=== PATIENT | male | born 1965 ===

== ENCOUNTER → 2020-03-31 07:46 | Outpatient (CLI) | payer OTHER, SELFPAY ==
--- NOTE | 2020-03-31 | DI.MRI.S_ITS ---
PROCEDURE: MR KNEE RT WO CON INDICATIONS: Other tear of lateral meniscus, current injury TECHNIQUE: Noncontrast sagittal PD fast spin echo and T2 fast spin echo with fat saturation, sagittal 3-D FLASH with fat saturation; coronal T1 spin echo and PD fast spin echo with fat saturation, and axial PD fast spin echo with fat saturation through the knee. COMPARISON: Merged With [facility], MR, KNEE WITHOUT CONTRAST, 11/18/2016, 17:49. FINDINGS: Image quality: Excellent. Menisci: Medial meniscal tear involving the posterior root which is not well visualized. There is also abnormal signal seen within the body of the medial meniscus extending to the periphery. There is slight partial extrusion Lateral meniscus intact although there is myxoid degeneration. Cruciate ligaments: Anterior cruciate ligament appears intact. Posterior cruciate ligament appears intact. Medial structures: The medial collateral ligament appears intact. Mild thickening of the distal insertion of the semimembranosus tendon. There is also mild T2 hyperintensity surrounding the distal pes anserinus tendons raising possibility of low-grade tendinopathy. Lateral structures: The lateral collateral ligament intact. Biceps femoris tendon appears intact. Popliteus tendon grossly unremarkable. Iliotibial band appears intact. Anterior structures: Quadriceps tendon intact. Medial and lateral patellofemoral ligaments intact. There is mild patellar tendinopathy. Prepatellar and superficial infrapatellar subcutaneous edema/fluid. Bones and cartilage: No focal marrow contusion or discrete low signal fracture line. Within the medial compartment, diffuse partial thickness loss of the femoral and tibial articular cartilage. Within the lateral compartment, intrasubstance signal changes involving the tibial cartilage. There is mild diffuse partial-thickness loss of the femoral cartilage. Within the patellofemoral compartment, diffuse surface fraying of the patellar cartilage. Joint space: Small joint effusion. Large Herman's cyst measuring approximately 6-7 cm in the cephalocaudal dimension. No specific evidence of intra-articular loose body. IMPRESSION: Medial meniscal tear involving the posterior root as well as the body. There is slight partial extrusion of the medial meniscus Mild patellar tendinopathy Degenerative joint disease as above Small joint effusion Herman's cyst as above Mild distal semimembranosus and pes anserinus tendinopathy. Dictated by: Geoff Rodriguez M.D. on 03/31/2020 at 10:03 Approved by: Geoff Rodriguez M.D. on 03/31/2020 at 10:13
== END ==
PROVIDERS: PCP Family Medicine Geriatric Medicine; Referring Provider Family Medicine Geriatric Medicine; Visit Provider Physician Assistant
DX: S83.241A Other tear of medial meniscus, current injury, right knee, initial encounter (principal); M17.11 Unilateral primary osteoarthritis, right knee; M71.21 Synovial cyst of popliteal space [Baker], right knee; M25.461 Effusion, right knee; X58.XXXA Exposure to other specified factors, initial encounter
CPT/HCPCS: 73721